=== PATIENT | female | born 1975 | race Caucasian/White ===

== ENCOUNTER 2018-08-11 19:40 | Emergency (ER) | payer OTHER ==
[~2018-08-11] VITALS: Ht 177.8 cm; Wt 177.3 kg
[2018-08-11 19:49] VITALS: BP 147/86; TEMP 98.9
[2018-08-11] MEDS ORDERED: HYZAAR 25 MG-101 TAB PO (20:01)
[2018-08-11] MEDS ORDERED: TOPROL XL 50MG50 MG PO (20:01)
[2018-08-11] MEDS ORDERED: FEMYNOR 28 TAB1 EACH PO (20:02)
[2018-08-11] MEDS ORDERED: NORCO 325 MG-51 TAB PO (21:29)
[2018-08-11 22:10] VITALS: PULSE 73
== END 2018-08-11 22:15 | disposition home or self-care (01) ==
LOC: COL.ER 19:40
DX: S82.141A Displaced bicondylar fracture of right tibia, initial encounter for closed fracture (principal); S93.401A Sprain of unspecified ligament of right ankle, initial encounter; W00.0XXA Fall on same level due to ice and snow, initial encounter; Y92.481 Parking lot as the place of occurrence of the external cause